=== PATIENT | female | born 1955 | race Two or more races ===

== ENCOUNTER 2021-08-27 21:28 | Emergency (ER) | payer BC, OTHER ==
[~2021-08-27] VITALS: Ht 165.1 cm; Wt 65.8 kg
--- NOTE | 2021-08-27 22:38 | NUR ---
BIBFAMILY C/O LEFT RAGLAND BRUISE/PAIN FOR OVER A MONTH, PAIN - RAD ragland bruise . PT A/OX3. TOLERATING R/A WELL WITH NO SOB. CONNECTED PT TO POX AND MONITOR. SAFETY MEASURES IN PLACE.
--- NOTE | 2021-08-27 23:17 | NUR ---
SENIOR FINANCIAL REPORTING ACCOUNTANT AT PT'S BEDSIDE
--- NOTE | 2021-08-27 23:23 | NUR ---
PT AMBULATORY WITH STEADY GAIT
--- NOTE | 2021-08-28 | NUR ---
US TECH AT PT'S BEDSIDE
--- NOTE | 2021-08-28 00:13 | NUR ---
Patient discharged to home in stable condition. Written and verbal after care instructions given. Patient verbalizes understanding of instruction.
[2021-08-28 00:14] VITALS: BP 136/70
== END 2021-08-28 00:14 | disposition home or self-care (01) ==
LOC: ER 21:38
DX: L08.9 Local infection of the skin and subcutaneous tissue, unspecified (principal); I87.2 Venous insufficiency (chronic) (peripheral)
CPT/HCPCS: 73590-TC; 93971-TC